=== PATIENT | female | born 1980 | race Caucasian/White ===

== ENCOUNTER 2016-12-15 10:05 | Emergency (ER) | payer OTHER ==
[2016-12-15 10:27] VITALS: BP 95/55
--- NOTE | 2016-12-15 11:41 | UC ---
Respiratory Complaint HPI - HPI Summary HPI Summary: 36 female presents with complaints of chest congestion, intermittent productive cough, fever/chills, and aches that has been on going for 2 weeks and worsened over this past weekend. Patient states the fever/chills of 101F had somewhat improved since this weekend. She did try taking some ibuprofen however has not tried other medications as she is currently . Denies hemopytisis. Admits to productive cough that is yellow in color. Denies nausea, vomiting, abdominal pain. No exposure to flu, strep or TB that she knows of. Had sore throat 2 weeks ago that has since improved. Also admits to headache. No PMHx other than RADS in which she uses an inhaler for every once in a while. She has been using her albuterol inhaler more frequently this past weekend. Has history of pneumonia. - History of Current Complaint Chief Complaint: UCRespiratory Stated Complaint: RESP COMPLAINT Time Seen by Provider: 12/15/16 10:51 Hx Obtained From: Patient Hx Last Menstrual Period: ?: No Onset/Duration: Sudden Onset, Lasting Weeks - 2, Still Present, Worse Since Timing: Constant Severity Initially: Mild Severity Currently: Moderate - Allergies/Home Medications Allergies/Adverse Reactions: Allergies Allergy/AdvReac Type Severity Reaction Status Date / Time No Known Allergies Allergy Verified 11/22/12 08:17 Home Medications: Home Medications Albuterol Sulfate [Proventil Hfa] 2 PRN 12/15/16 [History] Cholecalciferol TAB* [Vitamin D TAB*] 400 mg PO DAILY 12/15/16 [History Confirmed 12/15/16] PMH/Surg Hx/FS Hx/Imm Hx - Surgical History Surgical History: None - Social History Alcohol Use: Rare Substance Use Type: None Smoking Status (MU): Never Smoked Tobacco - Immunization History Most Recent Influenza Vaccination: encouraged Most Recent Tetanus Shot: 02/25/15 Most Recent Pneumonia Vaccination: none Physical Exam Vital Signs: Initial Vital Signs Temp 99.0 F 12/15/16 10:22 Pulse 63 12/15/16 10:22 Resp 18 12/15/16 10:22 BP 95/55 12/15/16 10:22 Pulse Ox 100 12/15/16 10:22 UC Diagnostic Evaluation - Laboratory O2 Sat by Pulse Oximetry: 100 - Radiology Xray Interpretation: Positive (See Comments) - LEFT LOWER LOBE INFILTRATE AND SMALL LEFT PLEURAL EFFUSION Radiology Interpretation Completed By: Radiologist Respiratory Course/Dx - Differential Dx/Diagnosis Provider Diagnoses: bronchitis Discharge - Discharge Plan Condition: Stable Disposition: HOME Prescriptions: Azithromycin TAB* [Zithromax TAB (Z-SIMI) 250 mg #6 tabs] 2 tab PO .TODAY, THEN 1 DAILY #1 simi predniSONE TAB* [Deltasone TAB*] 20 mg PO DAILY #3 tab Patient Education Materials: Acute Bronchitis (ED) Referrals: Rox Diaz NP [Primary Care Provider] - Additional Instructions: Take prescribed medication as directed until all doses are finished. These medications are safe to take when however if you are able to refrain, do so. Use inhaler 3-4 times daily for the next 3-5 days while symptoms persist. Also recommend taking ibuprofen for aches and fever. Drink plenty of fluids and get plenty of rest. Follow up with PCP. If symptoms worsen or do not improve please return or seek medical attention.
--- NOTE | 2016-12-15 12:25 | RAD ---
INDICATION: Congestive for 2 weeks evaluate for pneumonia. COMPARISON: Comparison is made with a prior chest x-ray study from September 08, 2016. TECHNIQUE: Dual-energy PA and lateral views of the chest were obtained. FINDINGS: The heart is within normal limits in size. Mediastinal and hilar contours appear within normal limits. There is a small infiltrate present in the left lower lobe and a small left pleural effusion. IMPRESSION: LEFT LOWER LOBE INFILTRATE AND SMALL LEFT PLEURAL EFFUSION.
== END 2016-12-15 12:00 | disposition home or self-care (01) ==
LOC: UCEAST 10:05
DX: J40 Bronchitis, not specified as acute or chronic (principal)
CPT/HCPCS: 71020; 99212; G0463

== ENCOUNTER 2017-01-03 13:23 | Emergency (ER) | payer OTHER ==
[2017-01-03] MEDS ORDERED: NS 0.9% 1000 ML* 1,000 ML IV ONE (13:34)
[2017-01-03 14:05] LABS: Hematocrit 38 % (35-47); Hemoglobin 12.3 g/dl (12.0-16.0); Mean Corpuscular HGB Conc 33 g/dl (31-36); Mean Corpuscular Hemoglobin 30 pg (27-31); Mean Corpuscular Volume 91 fL (80-97); Mean Platelet Volume 10 um3 (7.4-10.4); Red Blood Count 4.14 10^6/ul (4.0-5.4); Red Cell Distribution Width 14 % (10.5-15); White Blood Count 6.5 10^3/ul (3.5-10.8)
--- NOTE | 2017-01-03 14:16 | RAD ---
Indication: Dizziness. 2 views of the chest including dual energy PA views demonstrate no mediastinal shift. Heart is of normal size and configuration. Lung tomlin appear clear. IMPRESSION: No active cardiopulmonary disease is noted.
[2017-01-03 14:21] LABS: Albumin 4.1 g/dL (3.2-5.2); BUN/Creatinine Ratio 22.9 (8-20); C Reactive Protein 1.17 mg/L (< 5.00); Calcium 9.6 mg/dL (8.6-10.3); EGFR African American 120.4 (>60); EGFR Non-African American 93.6 (>60); Globulin 2.7 g/dL (2-4); Potassium 3.7 mmol/L (3.5-5.0); Total Bilirubin 1.6 mg/dL (0.2-1.0); Total Protein 6.8 g/dL (6.4-8.9)
[2017-01-03 14:23] LABS: Troponin I 0.02 ng/mL (<0.04)
[2017-01-03 14:32] LABS: Urine Bilirubin Negative (Negative); Urine Glucose Negative (Negative); Urine Nitrite Negative (Negative)
[2017-01-03 14:52] LABS: TSH (Thyroid Stimulating Horm) 3.35 mcIU/mL (0.34-5.60)
[2017-01-03 18:37] VITALS: BP 104/62
--- NOTE | 2017-01-07 11:07 | ED ---
Meagan Juarez Thomas, scribed for Tary Olivarez MD on 01/03/17 at 1355 . Dizziness - HPI Summary HPI Summary: Pt is a 36 y/o female presenting to the ED c/o lightheadedness while driving today. The pt was driving when she started feeling lightheaded and then used her inhaler, thinking that her lightheadedness would resovlve but it did not. She then became SOB and she developed CP (a tight pressure) that radiated to her arms. She then felt numbness in her arms and parasthesias on her legs and ribs. Then half of her face went numb. In the ED she rated her CP 7/10. Additionally c/o a minor cough (onset this morning). She denies N/V and diaphoresis. The pt had PNA last month and finished a course of abx two weeks ago. She ran a half marathon 2 days ago and reported that she was fatigued but had no trouble breathing. Pt has never had Sx similar to these before. The pt has no Hx of anxiety. - History Of Current Complaint Chief Complaint: EDDizziness Stated Complaint: NUMBNESS Time Seen by Provider: 01/03/17 13:33 Hx Obtained From: Patient Onset/Duration: Still Present Timing: Hours Severity Initially: Moderate Severity Currently: Moderate Aggravating Factor(s): Nothing Alleviating Factor(s): Nothing - Allergies/Home Medications Allergies/Adverse Reactions: Allergies Allergy/AdvReac Type Severity Reaction Status Date / Time No Known Allergies Allergy Verified 11/22/12 08:17 PMH/Surg Hx/FS Hx/Imm Hx Previously Healthy: No Cardiovascular History: Denies: Other Cardiovascular Problems/Disorders Respiratory History: Reports: Hx Asthma - RAD Denies: Other Respiratory Problems/Disorders Infectious Disease History: No Infectious Disease History: Denies: History Other Infectious Disease, Traveled Outside the [place] in Last 30 Days - Family History Known Family History: Positive: Diabetes, Other - CHF - Social History Alcohol Use: Rare Substance Use Type: Reports: None Smoking Status (MU): Never Smoked Tobacco Review of Systems Constitutional: Negative Negative: Skin Diaphoresis Eyes: Negative ENT: Negative Positive: Chest Pain - tightness, pressure, radiates to arms Positive: Shortness Of Breath Gastrointestinal: Negative Negative: Diarrhea, Nausea Genitourinary: Negative Musculoskeletal: Negative Skin: Negative Neurological: Other - POS: lightheaded, resolved Positive: Paresthesia - legs, ribs, Numbness - arms, side of face Psychological: Normal All Other Systems Reviewed And Are Negative: Yes Physical Exam - Summary Physical Exam Summary: VITAL SIGNS: Reviewed. GENERAL: ~Patient is a well-developed and nourished female who is lying comfortable in the stretcher. ~Patient is not in any acute respiratory distress. HEAD AND FACE: No signs of trauma. ~No ecchymosis, hematomas or skull depressions. No sinus tenderness. EYES: PERRLA, EOMI x 2, No injected conjunctiva, no nystagmus. EARS: Hearing grossly intact. Ear canals and tympanic membranes are within normal limits. MOUTH: Oropharynx within normal limits. NECK: Supple, trachea is midline, no adenopathy, no JVD, no carotid bruit, no c- spine tenderness, neck with full ROM. CHEST: Symmetric, no tenderness at palpation LUNGS: Clear to auscultation bilaterally. No wheezing or crackles. CVS: Regular rate and rhythm, S1 and S2 present, no murmurs or gallops appreciated. ABDOMEN: Soft, non-tender. No signs of distention. No rebound no guarding, and no masses palpated. Bowel sounds are normal. EXTREMITIES: FROM in all major joints, no edema, no cyanosis or clubbing. NEURO: Alert and oriented x 3. No acute neurological deficits. Speech is normal and follows commands. SKIN: Dry and warm Triage Information Reviewed: Yes Vital Signs On Initial Exam: Initial Vitals Temp Pulse Resp BP Pulse Ox 99.9 F 82 11 109/59 100 01/03/17 13:24 01/03/17 13:24 01/03/17 13:24 01/03/17 13:24 01/03/17 13:24 Vital Signs Reviewed: Yes Diagnostics - Vital Signs Vital Signs Temp Pulse Resp BP Pulse Ox 01/03/17 13:24 99.9 F 82 11 109/59 100 - Laboratory Lab Results: Lab Results 01/03/17 01/03/17 01/03/17 Range/Units 13:52 13:52 13:52 WBC 6.5 (3.5-10.8) 10^3/ul RBC 4.14 (4.0-5.4) 10^6/ul Hgb 12.3 (12.0-16.0) g/dl Hct 38 (35-47) % MCV 91 (80-97) fL MCH 30 (27-31) pg MCHC 33 (31-36) g/dl RDW 14 (10.5-15) % Plt Count 165 (150-450) 10^3/ul MPV 10 (7.4-10.4) um3 Neut % (Auto) 44.3 (38-83) % Lymph % (Auto) 37.6 (25-47) % Grand % (Auto) 11.6 H (1-9) % Eos % (Auto) 5.7 (0-6) % Baso % (Auto) 0.8 (0-2) % Absolute Neuts (auto) 2.9 (1.5-7.7) 10^3/ul Absolute Lymphs (auto) 2.4 (1.0-4.8) 10^3/ul Absolute Monos (auto) 0.8 (0-0.8) 10^3/ul Absolute Eos (auto) 0.4 (0-0.6) 10^3/ul Absolute Basos (auto) 0.1 (0-0.2) 10^3/ul Absolute Nucleated RBC 0 10^3/ul Nucleated RBC % 0 Sodium 137 (133-145) mmol/L Potassium 3.7 (3.5-5.0) mmol/L Chloride 105 (101-111) mmol/L Carbon Dioxide 26 (22-32) mmol/L Anion Gap 6 (2-11) mmol/L BUN 16 (6-24) mg/dL Creatinine 0.70 (0.51-0.95) mg/dL Est GFR ( Amer) 120.4 (>60) Est GFR (Non-Af Amer) 93.6 (>60) BUN/Creatinine Ratio 22.9 H (8-20) Glucose 143 H (70-100) mg/dL Lactic Acid 2.5 H* (0.5-2.0) mmol/L Calcium 9.6 (8.6-10.3) mg/dL Magnesium 2.0 (1.9-2.7) mg/dL Total Bilirubin 1.60 H (0.2-1.0) mg/dL AST 25 (13-39) U/L ALT 24 (7-52) U/L Alkaline Phosphatase 51 (34-104) U/L Troponin I 0.02 (<0.04) ng/mL C-Reactive Protein 1.17 (< 5.00) mg/L B-Natriuretic Peptide ( - 100) pg/mL Total Protein 6.8 (6.4-8.9) g/dL Albumin 4.1 (3.2-5.2) g/dL Globulin 2.7 (2-4) g/dL Albumin/Globulin Ratio 1.5 (1-3) TSH 3.35 (0.34-5.60) mcIU/mL Urine Color Urine Appearance Urine pH (5-9) Ur Specific [place] (1.010-1.030) Urine Protein (Negative) Urine Ketones (Negative) Urine Blood (Negative) Urine Nitrate (Negative) Urine Bilirubin (Negative) Urine Urobilinogen (Negative) Ur Leukocyte Esterase (Negative) Urine Glucose (Negative) 01/03/17 01/03/17 01/03/17 Range/Units 13:52 14:10 17:02 WBC (3.5-10.8) 10^3/ul RBC (4.0-5.4) 10^6/ul Hgb (12.0-16.0) g/dl Hct (35-47) % MCV (80-97) fL MCH (27-31) pg MCHC (31-36) g/dl RDW (10.5-15) % Plt Count (150-450) 10^3/ul MPV (7.4-10.4) um3 Neut % (Auto) (38-83) % Lymph % (Auto) (25-47) % Grand % (Auto) (1-9) % Eos % (Auto) (0-6) % Baso % (Auto) (0-2) % Absolute Neuts (auto) (1.5-7.7) 10^3/ul Absolute Lymphs (auto) (1.0-4.8) 10^3/ul Absolute Monos (auto) (0-0.8) 10^3/ul Absolute Eos (auto) (0-0.6) 10^3/ul Absolute Basos (auto) (0-0.2) 10^3/ul Absolute Nucleated RBC 10^3/ul Nucleated RBC % Sodium (133-145) mmol/L Potassium (3.5-5.0) mmol/L Chloride (101-111) mmol/L Carbon Dioxide (22-32) mmol/L Anion Gap (2-11) mmol/L BUN (6-24) mg/dL Creatinine (0.51-0.95) mg/dL Est GFR ( Amer) (>60) Est GFR (Non-Af Amer) (>60) BUN/Creatinine Ratio (8-20) Glucose (70-100) mg/dL Lactic Acid (0.5-2.0) mmol/L Calcium (8.6-10.3) mg/dL Magnesium (1.9-2.7) mg/dL Total Bilirubin (0.2-1.0) mg/dL AST (13-39) U/L ALT (7-52) U/L Alkaline Phosphatase (34-104) U/L Troponin I 0.01 (<0.04) ng/mL C-Reactive Protein (< 5.00) mg/L B-Natriuretic Peptide 49 ( - 100) pg/mL Total Protein (6.4-8.9) g/dL Albumin (3.2-5.2) g/dL Globulin (2-4) g/dL Albumin/Globulin Ratio (1-3) TSH (0.34-5.60) mcIU/mL Urine Color Straw Urine Appearance Clear Urine pH 8.0 (5-9) Ur Specific [place] 1.005 L (1.010-1.030) Urine Protein Negative (Negative) Urine Ketones Negative (Negative) Urine Blood Negative (Negative) Urine Nitrate Negative (Negative) Urine Bilirubin Negative (Negative) Urine Urobilinogen Negative (Negative) Ur Leukocyte Esterase Negative (Negative) Urine Glucose Negative (Negative) Result Diagrams: 01/03/17 13:52 01/03/17 13:52 Lab Statement: Any lab studies that have been ordered have been reviewed, and results considered in the medical decision making process. - Radiology CXR Xray Interpretation: No Acute Changes - No cardiopulmonary disease is noted Radiology Interpretation Completed By: Radiologist - EKG 13:42 Cardiac Rate: NL - 83 bpm EKG Rhythm: Sinus Rhythm EKG Interpretation: No ST elevations Dizzy Course/Dx - Course Assessment/Plan: Pt is a 36 y/o female presenting to the ED c/o lightheadedness while driving today. The pt was driving when she started feeling lightheaded and then used her inhaler, thinking that her lightheadedness would resovlve but it did not. She then became SOB and she developed CP (a tight pressure) that radiated to her arms. She then felt numbness in her arms and parasthesias on her legs and ribs. Then half of her face went numb. In the ED she rated her CP 7 /10. Additionally c/o a minor cough (onset this morning). She denies N/V and diaphoresis. The pt had PNA last month and finished a course of abx two weeks ago. She ran a half marathon 2 days ago and reported that she was fatigued but had no trouble breathing. Pt has never had Sx similar to these before. The pt has no Hx of anxiety. Test results were within normal limits except glucose 143 , lactic acid 2.5, both of which are consistent with a history of running a marathon yesterday. UA was negative for UTI. CXR showed no acute cardiopulmonary disease. First troponin I was 0.02 and second troponin 4 hours later was 0.01. At this point, the patient is feeling better with no other symptoms. The patient was hemodynamically stable, therefore the patient was discharged to follow-up with PCP. The patient was diagnosed with dizziness and atypical chest pain. Patient was advised not to drive until cleared by PCP - Diagnoses Differential Diagnosis/HQI/PQRI: Anxiety, Dysrhythmia, Hyperventilation Provider Diagnoses: Dizziness, Atypical chest pain Discharge - Discharge Plan Condition: Stable Disposition: HOME Patient Education Materials: Chest Pain (ED), Dizziness (ED) Referrals: Rox Diaz NP [Primary Care Provider] - 01/06/17 8:00 am (please call office to follow up in 2-3 days.) The documentation as recorded by the Meagan ovalle Thomas accurately reflects the service I personally performed and the decisions made by , Tray Olivarez MD.
== END 2017-01-03 18:37 | disposition home or self-care (01) ==
LOC: ED 13:23
DX: R07.89 Other chest pain (principal); R42 Dizziness and giddiness; R06.02 Shortness of breath
CPT/HCPCS: 36415; 71020; 80053; 81003; 83605; 83735; 83880; 84443; 84484; 85025; 86140; 93005; 99283

== ENCOUNTER 2017-04-29 09:17 | Emergency (ER) | payer OTHER ==
[2017-04-29 09:28] VITALS: BP 116/67
[2017-04-29] MEDS ORDERED: Meclizine TAB* 12.5 MG PO ONE (11:41)
[2017-04-29 12:46] LABS: Hematocrit 38 % (35-47); Hemoglobin 12.5 g/dl (12.0-16.0); Mean Corpuscular HGB Conc 33 g/dl (31-36); Mean Corpuscular Hemoglobin 29 pg (27-31); Mean Corpuscular Volume 89 fL (80-97); Mean Platelet Volume 10 um3 (7.4-10.4); Red Blood Count 4.32 10^6/ul (4.0-5.4); Red Cell Distribution Width 15 % (10.5-15)
[2017-04-29 12:55] LABS: Comments Flag Yes
[2017-04-29 12:58] LABS: ALT 13 U/L (7-52); AST 16 U/L (13-39); Albumin 4.4 g/dL (3.2-5.2); Alkaline Phosphatase 33 U/L (34-104); Anion Gap 6 mmol/L (2-11); BUN/Creatinine Ratio 17.5 (8-20); Blood Urea Nitrogen 11 mg/dL (6-24); C Reactive Protein < 1.00 mg/L (< 5.00); CO2 Carbon Dioxide 24 mmol/L (22-32); Calcium 9.1 mg/dL (8.6-10.3); Chloride 107 mmol/L (101-111); Creatine Kinase 55 U/L (10-223); EGFR Non-African American 105.8 (>60); Globulin 2.8 g/dL (2-4); Glucose 84 mg/dL (70-100); Magnesium 2.1 mg/dL (1.9-2.7); Potassium 3.8 mmol/L (3.5-5.0); Sodium 137 mmol/L (133-145); Total Protein 7.2 g/dL (6.4-8.9)
[2017-04-29 13:14] LABS: TSH (Thyroid Stimulating Horm) 1.34 mcIU/mL (0.34-5.60)
[2017-04-29 13:24] LABS: Vitamin B12 464 pg/mL (180-914)
--- NOTE | 2017-04-30 18:47 | ED ---
Meagan Juarez Thomas, scribed for Tray Olivarez MD on 04/29/17 at 1137 . Dizziness - HPI Summary HPI Summary: The patient is a 36 y/o F presenting to the ED with intermittent spells of dizziness characterized as room-spinning since last week. Pt additionally c/o tingling in her R arm that has been constant since yesterday. The patient additionally c/o nasal and sinus congestion (onset 1 month ago). She denies dysuria, postnasal drip, ear pain, fevers, or chills. She is referred to the ED by her PMD who requests that an EKG be obtained. LN 04/17/17. - History Of Current Complaint Chief Complaint: EDExtremityUpper Stated Complaint: LT ARM TINGLES/DIZZY Time Seen by Provider: 04/29/17 10:22 Hx Obtained From: Patient Onset/Duration: Still Present Timing: Intermittent Episode Lasting Character: Room Spinning Alleviating Factor(s): Nothing Associated Signs And Symptoms: Positive: Other: - Tingling in R arm (since yesterday), nasal and sinus congestion 9onset 1 month ago); NEGATIVE: dysuria, postnasal drip, ear pain, fevers, chills. - Allergies/Home Medications Allergies/Adverse Reactions: Allergies Allergy/AdvReac Type Severity Reaction Status Date / Time No Known Allergies Allergy Verified 11/22/12 08:17 PMH/Surg Hx/FS Hx/Imm Hx Previously Healthy: No Cardiovascular History: Denies: Hx Myocardial Infarction, Other Cardiovascular Problems/Disorders Respiratory History: Reports: Hx Asthma - RAD Denies: Other Respiratory Problems/Disorders - Surgical History Surgery Procedure, Year, and Place: None. Infectious Disease History: No Infectious Disease History: Denies: History Other Infectious Disease, Traveled Outside the [place] in Last 30 Days - Family History Known Family History: Positive: Diabetes - Social History Alcohol Use: Occasionally Alcohol Amount: wine Hx Substance Use: No Substance Use Type: Reports: None Hx Tobacco Use: No Smoking Status (MU): Never Smoked Tobacco Review of Systems Negative: Fever, Chills Positive: Other - Nasal and sinus congestion; NEGATIVE: postnasal drip. Negative: Ear Ache Negative: dysuria Neurological: Other - Intermittent dizziness for a week, tingling in right arm All Other Systems Reviewed And Are Negative: Yes Physical Exam - Summary Physical Exam Summary: VITAL SIGNS: Reviewed. GENERAL: ~Patient is a well-developed and nourished female is lying comfortable in the stretcher. ~Patient is not in any acute respiratory distress. HEAD AND FACE: No signs of trauma. No ecchymosis, hematomas or skull depressions. No sinus tenderness. EYES: PERRLA, EOMI x 2, No injected conjunctiva, no nystagmus. EARS: Hearing grossly intact. Ear canals and tympanic membranes are within normal limits. MOUTH: Oropharynx within normal limits. She has nasal congestion. NECK: Supple, trachea is midline, no adenopathy, no JVD, no carotid bruit, no c- spine tenderness, neck with full ROM. CHEST: Symmetric, no tenderness at palpation LUNGS: Clear to auscultation bilaterally. No wheezing or crackles. CVS: Regular rate and rhythm, S1 and S2 present, no murmurs or gallops appreciated. ABDOMEN: Soft, non-tender. No signs of distention. No rebound no guarding, and no masses palpated. Bowel sounds are normal. EXTREMITIES: FROM in all major joints, no edema, no cyanosis or clubbing. NEURO: Alert and oriented x 3. No acute neurological deficits. Speech is normal and follows commands. SKIN: Dry and warm Triage Information Reviewed: Yes Vital Signs On Initial Exam: Initial Vitals Temp Pulse Resp BP Pulse Ox 99.8 F 78 20 116/67 100 04/29/17 09:24 04/29/17 09:24 04/29/17 09:24 04/29/17 09:24 04/29/17 09:24 Vital Signs Reviewed: Yes - [place] Coma Scale Coma Scale Total: 15 Diagnostics - Vital Signs Vital Signs Temp Pulse Resp BP Pulse Ox 04/29/17 09:24 99.8 F 78 20 116/67 100 - Laboratory Result Diagrams: 04/29/17 11:57 04/29/17 11:57 Lab Statement: Any lab studies that have been ordered have been reviewed, and results considered in the medical decision making process. - EKG 12:05 Cardiac Rate: NL - 61 BPM EKG Rhythm: Sinus Rhythm EKG Interpretation: No ST elevations. Dizzy Course/Dx - Course Assessment/Plan: The patient is a 36 y/o F presenting to the ED with intermittent spells of dizziness characterized as room-spinning since last week. Pt additionally c/o tingling in her R arm that has been constant since yesterday. The patient additionally c/o nasal and sinus congestion (onset 1 month ago). She denies dysuria, postnasal drip, ear pain, fevers, or chills. She is referred to the ED by her PMD who requests that an EKG be obtained. [facility] 04/17/17. Test results are without significant abnormality. EKG is negative for acute arrhythmia. The patient declined a head CT and CXR. She is feeling better and wants to be discharged home. Therefore, the patient was discharged home with follow up by primary care. The patient is hemodynamically stable and alert and oriented x3. - Diagnoses Provider Diagnoses: Paresthesias Discharge - Discharge Plan Condition: Stable Disposition: HOME Patient Education Materials: Paresthesia (ED) Referrals: Rox Diaz NP [Primary Care Provider] - 3 Days Additional Instructions: Follow up with your primary care provider in 3 days. Return to the emergency department for any new or worsening symptoms. The documentation as recorded by the Meagan ovalle Thomas accurately reflects the service I personally performed and the decisions made by , Tray Olivarez MD.
== END 2017-04-29 13:54 | disposition home or self-care (01) ==
LOC: ED 09:17
DX: R20.2 Paresthesia of skin (principal); R42 Dizziness and giddiness; R09.81 Nasal congestion; Z32.02 Encounter for pregnancy test, result negative
CPT/HCPCS: 36415; 80053; 82550; 82607; 83735; 84443; 84702; 85025; 86140; 93005; 99282; A9270-GY